=== PATIENT | female | born 1965 | race Caucasian/White ===

== ENCOUNTER 2019-01-20 10:16 | Emergency (ER) | payer BC, OTHER ==
[2019-01-20 11:24] VITALS: BP 130/90
--- NOTE | 2019-01-20 11:47 | UC ---
General HPI - HPI Summary HPI Summary: pt removed a tick from her abdomen this am. she is uncertain how long it was there, possible since alst pm but could be longer. - History of Current Complaint Chief Complaint: Geovanna Stated Complaint: TICK Time Seen by Provider: 01/20/19 11:37 Hx Obtained From: Patient Hx Last Menstrual Period: OVER 5 YEARS AGO, UTERINE ABLASION Pain Intensity: 0 - Allergy/Home Medications Allergies/Adverse Reactions: Allergies Allergy/AdvReac Type Severity Reaction Status Date / Time No Known Allergies Allergy Verified 01/20/19 11:18 Home Medications: Home Medications Calcium Carb/Vitamin D3/Vit K1 [Calcium + D] 1 chw PO DAILY 01/20/19 [History Confirmed 01/20/19] PMH/Surg Hx/FS Hx/Imm Hx Previously Healthy: Yes - Surgical History Surgical History: Yes Surgery Procedure, Year, and Place: c - sections x 3. THYROIDECTOMY - Family History Known Family History: Positive: Non-Contributory - Social History Lives: With Family Alcohol Use: Occasionally Substance Use Type: None Smoking Status (MU): Former Smoker Amount Used/How Often: 1 ppd Length of Time of Smoking/Using Tobacco: 20 yrs Have You Smoked in the Last Year: Yes When Did the Patient Quit Smoking/Using Tobacco: 10 yrs ago - Immunization History Most Recent Influenza Vaccination: NOT IN 2013 Most Recent Tetanus Shot: unknown Review of Systems All Other Systems Reviewed And Are Negative: No Constitutional: Negative: Fever, Chills, Fatigue Skin: Negative: Rash Musculoskeletal: Negative: Arthralgia Physical Exam Triage Information Reviewed: Yes Appearance: Well-Appearing Vital Signs: Initial Vital Signs Temp 97.8 F 01/20/19 11:19 Pulse 74 01/20/19 11:19 Resp 16 01/20/19 11:19 BP 130/90 01/20/19 11:19 Pulse Ox 100 01/20/19 11:19 Vital Signs Reviewed: Yes Musculoskeletal: Positive: ROM Intact, No Edema Neurological: Positive: Alert Psychological: Positive: Normal Response To Family, Age Appropriate Behavior Skin Exam: Normal, Other - abrasion to upper abdomen wher tick removed. no bullseye. Course/Dx - Diagnoses Provider Diagnosis: Tick bite Discharge - Sign-Out/Discharge Documenting (check all that apply): Patient Departure All imaging exams completed and their final reports reviewed: No Studies - Discharge Plan Condition: Stable Disposition: HOME Prescriptions: DOXYcycline CAP(*) [DOXYcycline 100MG CAP(*)] 200 mg PO ONCE #2 cap Patient Education Materials: Tick Bite (ED) Referrals: Christine Stanford PA [Primary Care Provider] - If Needed - Billing Disposition and Condition Condition: STABLE Disposition: Home
== END 2019-01-20 11:52 | disposition home or self-care (01) ==
LOC: UCCORT 10:16
DX: T63.481A Toxic effect of venom of other arthropod, accidental (unintentional), initial encounter (principal); Y92.9 Unspecified place or not applicable; Z87.891 Personal history of nicotine dependence
CPT/HCPCS: 99212; G0463